=== PATIENT | female | born 1955 | race American Indian/Alaskan Native ===

== ENCOUNTER 2018-11-28 09:58 | Outpatient (CLI) | payer MEDICARE ==
--- NOTE | 2018-11-28 13:24 | Mammography Report ---
RIGHT DIGITAL DIAGNOSTIC MAMMOGRAM CLINICAL: For clip placement after ultrasound biopsy. COMPARISON: 10/21/2018 FINDINGS: A retroareolar areolar biopsy clip is now identified and correlates with the previously adin ntified lesion. There is a small 2 cm postbiopsy hematoma at the site. IMPRESSION: Concordant clip deployment. Signer Name: Zackary Marquez MD Signed: 11/28/2018 1:20 PM Workstation Name: [id number]
--- NOTE | 2018-11-28 14:09 | Ultrasound Report ---
ULTRASOUND-GUIDED VACUUM-ASSISTED NEEDLE CORE BIOPSY Right BREAST WITH CLIP PLACEMENT CLINICAL: History of bloody nipple discharge and duct ectasia with no intraductal mass. FINDINGS: The procedure was explained to the patient and informed consent was obtained. Ultrasound demonstrated a single dilated duct at 1:00 with a subtle slightly echogenic intraductal ma ss at 1:00 3 cm from the nipple.. A marker breast with a felt tip marker and a timeout was called. The skin was prepped with Chloro-Pre p and anesthetized with 1% lidocaine. Vacuum-assisted needle core biopsy was performed through a small dermatotomy using ultrasound guidanc e, 2% lidocaine with epinephrine for deep anesthesia and a 13-gauge Mammotome Elite biopsy device. Mu ltiple cores were obtained and placed in formalin. A clip was deployed within the lesion. The patient tolerated the procedure well and there were no apparent convocations. Hemostasis was achi eved with minimal effort and a sterile dressing was applied. An Lul wrap bandage was applied. A post procedure mammogram demonstrated concordant clip deployment and a 2 cm postbiopsy hematoma at the site. She left the department in good condition and was given instructions for wound care and fol low-up. IMPRESSION: Uncomplicated ultrasound guided needle core biopsy with clip placement right breast. Signer Name: Zackary Marquez MD Signed: 11/28/2018 2:05 PM Workstation Name: [id number]
== END 2018-11-28 09:59 | disposition home or self-care (01) ==
LOC: SPVWC 09:58
PROVIDERS: ATTEND Surgery
DX: N60.31 Fibrosclerosis of right breast (principal); N60.41 Mammary duct ectasia of right breast; I10 Essential (primary) hypertension; J45.909 Unspecified asthma, uncomplicated; R92.8 Other abnormal and inconclusive findings on diagnostic imaging of breast; Z90.49 Acquired absence of other specified parts of digestive tract; Z88.8 Allergy status to other drugs, medicaments and biological substances; Z79.899 Other long term (current) drug therapy
CPT/HCPCS: 88305